=== PATIENT | male | born 1985 | race Caucasian/White ===

== ENCOUNTER 2018-09-09 00:14 | Emergency (ER) | payer OTHER ==
[2018-09-09 00:26] VITALS: PULSE 68; RESP 18
[2018-09-09] MEDS ORDERED: PROPARACAINE 0.5% OPHTH DROPS 15 ML BTL LEFT EYE STA (01:32)
[2018-09-09] MEDS ORDERED: FLUORESCEIN STRIPS 1 MG STRIP LEFT EYE ONE (01:32)
[2018-09-09 02:22] VITALS: BP 129/92; TEMP 97.5
[2018-09-09] MEDS ORDERED: CLINDAMYCIN 150 MG CAP PO STA (03:04)
[2018-09-09] MEDS ORDERED: LEVOFLOXACIN 0.5% OPHTH DROPS 5 ML BTL RIGHT EYE STA (03:07)
[2018-09-09] MEDS ORDERED: AMOXIC-POT CLAV 875MG STARTER 2 EACH TABLET PO STA (03:13)
--- NOTE | 2018-09-09 03:13 | ED ---
General Adult HPI - General Chief complaint: Eye Problems Stated complaint: Eye Pain Time Seen by Provider: 09/09/18 02:27 Source: patient, RN notes reviewed Mode of arrival: ambulatory Limitations: no limitations - History of Present Illness Initial comments: 33-year-old male presents to the emergency department for a chief complaint of right eye irritation 2 days. Patient states he was working on a car and afterwards felt a foreign body sensation in the right eye. He states the eye has been irritating him since that time. He denies any visual changes including blurriness, scotomas, scintillations. He denies any pain around or behind the eye. He denies any pain with movement of the eye. He does state he flushed out his eye immediately after working on the car. He denies any fevers or chills. Patient has no other complaints at this time including shortness of breath, chest pain, abdominal pain, nausea or vomiting, headache, or visual changes. - Related Data Home Medications Medication Instructions Recorded Confirmed Phenylephrine HCl/Acetaminophn 1 each PO DIRECTED 03/09/16 03/09/16 [Sudafed PE Pressure+Pain Cplt] Previous Rx's Medication Instructions Recorded Amoxicillin/Potassium Clav 1 tab PO Q12HR #10 tab 03/09/16 [Augmentin 875-125 Tablet] Fluticasone Nasal [place] [Flonase 2 spr EA NOSTRIL DAILY #1 bottle 03/09/16 Nasal [place]] Pseudoephedrine 12Hr [Sudafed 12Hr] 120 mg PO Q12H PRN #20 tablet.er 03/09/16 predniSONE 50 mg PO DAILY #3 tab 03/09/16 Amoxicillin/Potassium Clav 1 tab PO Q12HR #20 tab 09/09/18 [Augmentin 875-125 Tablet] Levofloxacin 0.5% Ophth Soln 1 drop BOTH EYES Q2H 7 Days ml 09/09/18 [Quixin Ophth Soln] Allergies Allergy/AdvReac Type Severity Reaction Status Date / Time No Known Allergies Allergy Verified 09/09/18 00:26 Review of Systems ROS Statement: Those systems with pertinent positive or pertinent negative responses have been documented in the HPI. ROS Other: All systems not noted in ROS Statement are negative. Past Medical History Additional Past Medical History / Comment(s): migraines History of Any Multi-Drug Resistant Organisms: None Reported Past Surgical History: No Surgical Hx Reported Past Psychological History: No Psychological Hx Reported Smoking Status: Current some day smoker Past Alcohol Use History: None Reported Past Drug Use History: Marijuana General Exam Limitations: no limitations General appearance: alert, in no apparent distress Head exam: Present: atraumatic, normocephalic, normal inspection Eye exam: Present: PERRL, EOMI (No pain with movement of the eye), conjunctival injection (Erythema noted of the right conjunctiva, sparing limbus), periorbital swelling (Minimal edema noted inferior to the right eye). Absent: periorbital tenderness Expanded Eyelids: Normal Inspection: Right (Right superior and inferior eyelids were flipped to insect or foreign body, none noted) Pupils: Regular, Round: Bilateral, Reactive: Bilateral Sclera/Conjunctival: Injection: Right (Erythema noted of the conjunctiva sparing the limbus, no foreign body noted) IOP (R) in mmH IOP (L) in mmH IOP measured with: Tonopen ENT exam: Present: normal exam, mucous membranes moist Neck exam: Present: normal inspection, full ROM. Absent: tenderness, meningismus, lymphadenopathy Respiratory exam: Present: normal lung sounds bilaterally. Absent: respiratory distress, wheezes, rales, rhonchi, stridor Cardiovascular Exam: Present: regular rate, normal rhythm, normal heart sounds. Absent: systolic murmur, diastolic murmur, rubs, gallop, clicks Course Vital Signs 09/09/18 09/09/18 00:23 02:17 Temperature 98.1 F 97.5 F L Pulse Rate 68 68 Respiratory 18 18 Rate Blood Pressure 145/71 129/92 O2 Sat by Pulse 99 96 Oximetry Medical Decision Making - Medical Decision Making 33-year-old male presents to the emergency department for a chief complaint of right eye irritation 2 days. Patient states this occurred shortly after working on a car. Patient did wash out his eye. He is up-to-date on tetanus. He denies any visual changes or pain. On exam patient does have some erythema noted of the conjunctiva sparing the limbus. The eye was inspected very thoroughly and both eyelids were flipped and no signs of foreign body evident. The eye was stained with fluorescein stain and visual issues a Wood's lamp. No evidence of significant abrasion. There is possibly a small mild abrasion at about 3:00 on the cornea of the right eye. Pressures in the right eye are 14 and in the left eye 12. EOMI without any pain. Patient does have some erythema , and very minimal edema noted of the inferior right periorbital area. Patient will be put on Augmentin to cover for a periorbital cellulitis. I do not suspect orbital cellulitis as patient does not have any pain with movement of the eye and exam is unimpressive. He will also be given levofloxacin drops as he is an antibiotic where. He was ordered these medications here in the emergency department and given prescriptions as well. He was given a referral to ophthalmology and agrees to follow up with them in the next day. He will return here if he has any worsening symptoms that she is aware of. Disposition Clinical Impression: Irritation of right eye Disposition: HOME SELF-CARE Condition: Good Instructions: Eye Foreign Body (ED), Periorbital Cellulitis in Adults (ED), Conjunctivitis (ED) Additional Instructions: Please take antibiotics as directed. Please use eyedrops as directed. Please follow-up with ophthalmology in one to 2 days. Do not wear contacts until you see ophthamology. Please return to the emergency department if you have any worsening symptoms. Prescriptions: Amoxicillin/Potassium Clav [Augmentin 875-125 Tablet] 1 tab PO Q12HR #20 tab Levofloxacin 0.5% Ophth Soln [Quixin Ophth Soln] 1 drop BOTH EYES Q2H 7 Days ml Is patient prescribed a controlled substance at d/c from ED?: No Referrals: Alexx Avendano MD [STAFF PHYSICIAN] - 1-2 days Time of Disposition: 02:58
== END 2018-09-09 03:39 | disposition home or self-care (01) ==
LOC: EC 00:14
DX: H57.89 Other specified disorders of eye and adnexa (principal); F17.200 Nicotine dependence, unspecified, uncomplicated; Z79.899 Other long term (current) drug therapy
CPT/HCPCS: 99283

== ENCOUNTER 2020-12-10 12:25 | Emergency (ER) | payer OTHER ==
[2020-12-10 12:42] VITALS: BP 131/68; PULSE 79; RESP 16; TEMP 98.1
--- NOTE | 2020-12-10 12:57 | ED ---
ENT HPI - General Chief complaint: ENT Stated complaint: RT ear pain Time Seen by Provider: 12/10/20 12:45 Source: patient, RN notes reviewed Mode of arrival: ambulatory Limitations: no limitations - History of Present Illness Initial comments: this is a 35-year-old male presents emergency Department chief complaint right ear pain. Patient states started a few days ago has gradually worsened. Patient states it radiates into her throat feels like it's ears plugged. No fevers chills headache dizziness facial pain he has been to seasonal ALLERGY issues. No shortness breath or difficulty swallowing. Patient denies any drainage. - Related Data Home Medications Medication Instructions Recorded Confirmed Phenylephrine HCl/Acetaminophn 1 each PO DIRECTED 03/09/16 03/09/16 [Sudafed PE Pressure+Pain Cplt] Previous Rx's Medication Instructions Recorded Amoxicillin/Potassium Clav 1 tab PO Q12HR #10 tab 03/09/16 [Augmentin 875-125 Tablet] Fluticasone Nasal [place] [Flonase 2 spr EA NOSTRIL DAILY #1 bottle 03/09/16 Nasal [place]] Pseudoephedrine 12Hr [Sudafed 12Hr] 120 mg PO Q12H PRN #20 tablet.er 03/09/16 predniSONE 50 mg PO DAILY #3 tab 03/09/16 Amoxicillin/Potassium Clav 1 tab PO Q12HR #20 tab 09/09/18 [Augmentin 875-125 Tablet] Levofloxacin 0.5% Ophth Soln 1 drop BOTH EYES Q2H 7 Days ml 09/09/18 [Quixin Ophth Soln] Fluticasone Nasal [place] [Flonase 2 spr EA NOSTRIL DAILY #1 bottle 12/10/20 Nasal [place]] predniSONE 50 mg PO DAILY #5 tab 12/10/20 Allergies Allergy/AdvReac Type Severity Reaction Status Date / Time No Known Allergies Allergy Verified 12/10/20 12:42 Review of Systems ROS Statement: Those systems with pertinent positive or pertinent negative responses have been documented in the HPI. ROS Other: All systems not noted in ROS Statement are negative. Past Medical History Past Medical History: No Reported History Additional Past Medical History / Comment(s): migraines History of Any Multi-Drug Resistant Organisms: None Reported Past Surgical History: No Surgical Hx Reported Past Psychological History: No Psychological Hx Reported Smoking Status: Current every day smoker Past Alcohol Use History: None Reported Past Drug Use History: Marijuana General Exam Limitations: no limitations General appearance: alert, in no apparent distress Head exam: Present: atraumatic, normocephalic, normal inspection Eye exam: Present: normal appearance, PERRL, EOMI. Absent: scleral icterus, c onjunctival injection, periorbital swelling ENT exam: Present: normal oropharynx, mucous membranes moist. Absent: normal exam, TM's normal bilaterally (fluid noted in the right TM, no erythema) Neck exam: Present: normal inspection, full ROM ( no mastoid tenderness). Absent: tenderness, meningismus, lymphadenopathy Respiratory exam: Present: normal lung sounds bilaterally. Absent: respiratory distress, wheezes, rales, rhonchi, stridor Cardiovascular Exam: Present: regular rate, normal rhythm, normal heart sounds. Absent: systolic murmur, diastolic murmur, rubs, gallop, clicks Course Vital Signs 12/10/20 12:39 Temperature 98.1 F Pulse Rate 79 Respiratory 16 Rate Blood Pressure 131/68 O2 Sat by Pulse 99 Oximetry Medical Decision Making - Medical Decision Making patient has eustachian tube dysfunction we treated with decongestants, Flonase. Patient follow-up with PCP return parameters were discussed. Disposition Clinical Impression: Eustachian tube dysfunction, Otalgia Disposition: HOME SELF-CARE Condition: Stable Instructions (If sedation given, give patient instructions): Earache (ED) Additional Instructions: Please return to the Emergency Department if symptoms worsen or any other concerns. Prescriptions: Fluticasone Nasal [place] [Flonase Nasal [place]] 2 spr EA NOSTRIL DAILY #1 bottle predniSONE 50 mg PO DAILY #5 tab Is patient prescribed a controlled substance at d/c from ED?: No Referrals: None,Stated [Primary Care Provider] - 1-2 days Time of Disposition: 12:57
== END 2020-12-10 13:07 | disposition home or self-care (01) ==
LOC: EC 12:25
DX: H69.01 Patulous Eustachian tube, right ear (principal); F17.200 Nicotine dependence, unspecified, uncomplicated; F12.90 Cannabis use, unspecified, uncomplicated
CPT/HCPCS: 99282